=== PATIENT | female | born 1960 | race Caucasian/White ===

== ENCOUNTER → 2024-03-08 | Outpatient (CLI) | payer BC, SELFPAY ==
[2024-03-08 08:36] LABS: Basophils # (Auto) 0.1 Thou/mm3 (0.0-0.2); Basophils % (Auto) 2 % (0-2.5); Eosinophils # (Auto) 0.2 Thou/mm3 (0.0-0.5); Eosinophils % (Auto) 4 % (0-10); Hematocrit 31.8 % (36.0-46.0); Immature Granulocytes % (Auto) 0 % (0-0); Immature Granulocytes Auto 0.02 Thou/mm3 (0.00-0.00); Lymphocytes # (Auto) 1.4 Thou/mm3 (1.0-4.8); Lymphocytes % (Auto) 24 % (10-50); Mean Corpuscular HGB Conc 27.7 g/dl (31.0-37.0); Mean Corpuscular Hemoglobin 19.6 pg (25.0-35.0); Mean Corpuscular Volume 71 fL (80-100); Monocytes # (Auto) 0.5 Thou/mm3 (0.0-0.8); Monocytes % (Auto) 9 % (0-12); Neutrophils # (Auto) 3.8 Thou/mm3 (1.8-7.7); Neutrophils % (Auto) 62 % (37-80); Nucleated Red Blood Cell % 0 /100 WBC (0); Platelet Count 485 Thou/mm3 (140-440); RDW Standard Deviation 45.1 fL (36.4-46.3); White Blood Count 6.1 Thou/mm3 (3.6-11.0)
[2024-03-08 08:41] LABS: Hemoglobin 8.8 g/dL (12.0-16.0)
[2024-03-08 08:56] LABS: Collection Type, Urine Clean Catch
[2024-03-08 09:03] LABS: Vitamin B12 672 pg/mL (211-911); Vitamin D 25 Hydroxy Total 9.5 ng/mL (7.3-40.2)
[2024-03-08 09:06] LABS: Alanine Aminotransferase 20 U/L (10-49); Albumin, Serum 4.4 gm/dL (3.4-4.8); Albumin/Globulin Ratio 1.7 (1.2-2.2); Alkaline Phosphatase 157 U/L (46-116); Anion Gap 6 (7-16); Aspartate Amino Transferase 11 U/L (0-34); BUN/Creatinine Ratio 23 Ratio (12-20); Bilirubin,Total 0.3 mg/dL (0.3-1.2); Blood Urea Nitrogen 21 mg/dL (9-23); Calcium 9.8 mg/dL (8.3-10.6); Calcium (Corrected) 9.8 mg/dL (8.5-10.1); Carbon Dioxide 29.3 mMol/L (20.0-31.0); Cardiac Risk Estimate 2.9 RATIO (3.7-5.6); Chloride 103 mMol/L (98-107); Cholesterol 161 mg/dL (132-200); Creatinine (Component) 0.9 mg/dL (0.6-1.3); Globulin 2.6 gm/dL (2.3-3.5); Glucose 134 mg/dL (74-106); HDL Cholesterol 56 mg/dL (40-60); LDL Cholesterol,Calculated 90 mg/dL (0-130); Osmolality,Calculated 280 (275-295); Potassium 4.1 mMol/L (3.4-5.1); Sodium 138 mMol/L (136-145); Thyroid Stimulating Hormone 2.69 uIU/mL (0.55-4.78); Triglycerides 76 mg/dL (30-150); Uric Acid 5.5 mg/dL (3.1-7.8); eGFR > 60 See Note
[2024-03-08 09:29] LABS: Ferritin < 0 ng/mL (7.3-270.7)
[2024-03-08 09:32] LABS: Glucose Estimated Average 154 mg/dL (80-131)
[2024-03-08 09:46] LABS: Bilirubin,Urine Negative (Negative); Blood,Urine Negative (Negative); Budding Yeast,Urine Present; Clarity,Urine Clear (Clear/Hazy); Color,Urine Lt-Yellow (Lt Yel-Yel); Culture Indicated,Urine Not Indicated; Glucose, Urine 4+ (Negative); Hyaline Casts,Urine < 1 /hpf (0-1); Ketones,Urine Negative (Negative); Leukocyte Esterase,Urine Positive (Negative); Nitrite,Urine Negative (Negative); Protein,Urine Trace (Neg - Trace); RBC,Urine 3 /hpf (0-3); Specific Gravity,Urine 1.022 (1.001-1.035); Squamous Epithelial Cell,Urine 8 /hpf (0-5); Urobilinogen,Urine Negative mg/dL (0.0-1.0); WBC,Urine 4 /hpf (0-5)
[2024-03-08 10:55] LABS: Creatinine MALB Rnd Ur 64 mg/dL (30-125); Microalbumin Creat Ratio 6 mg/gCrea (<30); Microalbumin, Random Urine 4 mg/L (0-300)
== END | disposition home or self-care (01) ==
PROVIDERS: PCP Internal Medicine; Referring Provider Internal Medicine; Visit Provider Internal Medicine
DX: E11.9 Type 2 diabetes mellitus without complications (principal); I10 Essential (primary) hypertension; E78.5 Hyperlipidemia, unspecified
CPT/HCPCS: 36415; 80053; 80061; 81001; 82043; 82306; 82570; 82607; 82728; 83036; 84443; 84550; 85025

== ENCOUNTER 2024-03-31 07:28 | Outpatient (RCR) | payer BC, SELFPAY ==
[2024-03-25 07:48] VITALS: BP 123/53; PULSE 63; RESP 18; TEMP 36.2; O2SAT 96; BMI 46.3
[2024-03-25] MEDS: ferumoxytoL (ESRD) 510 MG in SODIUM CHLORIDE 0.9% 100 ML 234 MG IV (08:55)
[2024-03-25 10:00] VITALS: BP 107/50; PULSE 61; RESP 18; TEMP 36.3; O2SAT 96
[2024-03-31 07:49] VITALS: BP 111/62; PULSE 60; RESP 20; TEMP 36.2; O2SAT 95; BMI 45.9
[2024-03-31] MEDS: ferumoxytoL (ESRD) 510 MG in SODIUM CHLORIDE 0.9% 100 ML 234 MG IV (07:59)
[2024-03-31 08:49] VITALS: BP 113/60; PULSE 60; RESP 20; TEMP 36.3; O2SAT 97
== END 2024-04-03 23:59 | disposition home or self-care (01) ==
LOC: SFLEX 07:28
PROVIDERS: PCP Internal Medicine; Referring Provider Internal Medicine; Visit Provider Internal Medicine
PROC: (CPT 96365; principal; 2024-03-25 08:00)
DX: D50.9 Iron deficiency anemia, unspecified (principal)
CPT/HCPCS: 96365; J7050; Q0139

== ENCOUNTER 2024-12-03 16:17 | Emergency (ER) | payer BC, SELFPAY ==
[2024-12-03 16:17] VITALS: BMI 51.7
[2024-12-03 16:52] VITALS: BP 146/85; PULSE 66; RESP 17; TEMP 37.2; O2SAT 95
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
[2024-12-03] MEDS: IBUPROFEN TAB 400 MG TABLET 800 MG PO (17:06)
[2024-12-03] MEDS: BACITRACIN OINT 15 GM TUBE TOP (17:07)
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
== END 2024-12-03 17:44 | disposition home or self-care (01) ==
PROVIDERS: Emergency Provider Family Medicine; PCP Internal Medicine
DX: T23.171A Burn of first degree of right wrist, initial encounter (principal); T31.0 Burns involving less than 10% of body surface; X16.XXXA Contact with hot heating appliances, radiators and pipes, initial encounter
CPT/HCPCS: 99282; A9270